=== PATIENT | male | born 1970 | race Caucasian/White ===

== ENCOUNTER 2023-03-31 16:13 | Outpatient (OUT) | payer OTHER, SELFPAY ==
[2023-03-31 16:35] LABS: Erythrocyte Sedimentation Rate 25 mm/hr (<=20)
[2023-03-31 16:47] LABS: Uric Acid 6.9 mg/dL (3.5-7.2)
[2023-03-31 16:48] LABS: C Reactive Protein <0.50 mg/dL (<=0.50)
== END 2023-03-31 16:14 | disposition home or self-care (01) ==
LOC: LAB 16:17
PROVIDERS: PCP Family Medicine; Visit Provider Family Medicine
DX: M76.60 Achilles tendinitis, unspecified leg (principal)
CPT/HCPCS: 36415; 84550; 85652; 86140

== ENCOUNTER 2024-03-29 14:47 | Outpatient (OUT) | payer OTHER, SELFPAY ==
--- NOTE | 2024-03-29 14:49 | US_ITS ---
[facility] [id number] Patient Name: CARIDAD BUTT MRN: [id number] date: 1970 Sex: M Assigned Patient Location: [place] Current Patient Location: Accession/Order Number: [id number] Exam Date: 03/29/2024 14:50 Report Date: 04/02/2024 08:16 At the request of: MENDEL PENA Procedure: US scrotum doppler EXAMINATION: US scrotum doppler HISTORY: Epididymitis ; right scrotal pain for 3 weeks COMPARISON: No relevant comparison available. TECHNIQUE: High-resolution sonographic imaging of the scrotum and contents was performed. FINDINGS: RIGHT: TESTICLE: Homogeneous echotexture. No visible mass. Color Doppler flow is present. Spectral Doppler demonstrates normal arterial waveform and flow, 5/2 cm/s (PSV/EDV), and normal venous wave flow averaging 2 cm/s. EPIDIDYMIS: Slightly heterogeneous. No increase in size or hypervascularity. OTHER: None. LEFT: TESTICLE: Homogeneous echotexture. No visible mass. Color Doppler flow is present. Spectral Doppler demonstrates arterial waveform and flow, 6/3 cm/s (PSV/EDV), and normal venous flow averaging 2 cm/s. EPIDIDYMIS: 3 mm cyst within head of epididymis. No increase in size or hypervascularity. OTHER: Varicocele and small hydrocele. US/US scrotum doppler IMPRESSION: 1. No acute or specific findings to account for patient's right scrotal pain. Electronically authenticated by: YAMILA RAZO Date: 04/02/2024 08:16
== END 2024-03-29 14:48 | disposition home or self-care (01) ==
LOC: US 14:47
PROVIDERS: PCP Family Medicine; Visit Provider Family Medicine
DX: N45.1 Epididymitis (principal)
CPT/HCPCS: 76870; 93976

== ENCOUNTER 2024-05-10 11:36 | Outpatient (OUT) | payer OTHER, SELFPAY ==
--- OUTSIDE RECORDS SUMMARY | 2024-05-10 11:40 | XMS_ITS | CCD ---
Author Organization [facility] Care Team Providers Care Electronics Processor Name Role Phone DR MENDEL ALBRECHT Primary Care Unavailable DR MENDEL ALBRECHT Admitting Unavailable JEAN, DR OGLESBY Attending Unavailable JEAN, DR OGLESBY Consulting Unavailable DR MENDEL ALBRECHT Admitting Unavailable JEAN, DR OGLESBY Attending Unavailable JEAN, DR OGLESBY Consulting Unavailable DR MENDEL ALBRECHT Primary Care Unavailable Mendel Albrecht Primary Care Physician [phone] EMILY XAVIER Attending Unavailable Mendel Albrecht Referring Unavailable Problems Active Problems Problem Classification Problem Date Documented Date Episodic/Chronic Abdominal pain (2 sources) Right lower quadrant pain; Translations: [Right lower quadrant pain] Onset: 04-23-2024 Episodic Diseases of mouth; excluding dental (1 source) Sialolithiasis 04-20-2024 Episodic Essential hypertension (1 source) Hypertensive disorder 04-20-2024 Chronic Inflammatory conditions of male genital organs (3 sources) Epididymitis; Translations: [Epididymitis] Onset: 04-23-2024 Episodic Osteoarthritis (1 source) Osteoarthritis of knee 04-20-2024 Chronic Other male genital disorders (1 source) Pain in testicle; Translations: [Right testicular pain] Onset: 04-23-2024 Episodic Other male genital disorders (2 sources) Pain of right testicle 04-20-2024 Episodic Other upper respiratory infections (1 source) Acute sinusitis, unspecified; Translations: [ACUTE SINUSITIS UNSPECIFIED] Onset: 04-09-2021 Episodic Spondylosis; intervertebral disc disorders; other back problems (1 source) Intervertebral disc disorder 04-20-2024 Chronic Unclassified (2 sources) CONTACT W/AND (SUSP) EXPOS COVID-19; Translations: [CONTACT W/AND (SUSP) EXPOS COVID-19] Onset: 04-09-2021 Viral infection (1 source) COVID-19; Translations: [COVID-19] Onset: 04-09-2021 Past or Other Problems Problem Classification Problem Date Documented Da te Episodic/Chronic Unclassified (1 source) CONTACT W/AND (SUSP) EXPOS COVID-19; Translations: [CONTACT W/AND (SUSP) EXPOS COVID-19] Onset: 04-03-2021 Results Test Name Value Interpretation Reference Range Facil ity Ambulatory Visit Summaryon 0 04-24-2024 Ambulatory Visit Summary Ambulatory Visit Summary CARIDAD BUTT :1970 Visit Date:04/23/2024 Ambulatory Visit Instructions Your Diagnosis Right testicular pain RLQ abdominal pain Chronic epididymitis Tests Performed CT Abdomen/Pelvis w/ + w/o Contrast -- Results Pending -- Please visit your patient portal for your results or contact your primary care physician. Your Care Team Attending Physician - EMILY XAVIER PA-C Primary Care Physician - Mendel Albrecht MD Referring Physician - Mendel Albrecht MD Procedures Performed Vasectomy (2007), Sinus. Discharge Vitals Temperature (Oral) 37 ???C Heart Rate (Apical) 72 Respiratory Rate 18 Blood Pressure 166/92 Height 72 in Height 183 cm Weight 259.704 lb Weight 117.8 kg BMI 35.18 What to do next You Need to Schedule the Following Appointments Follow Up with EMILY XAVIER PA-C, KANDI When: Comments: pending results of imaging/testing, will call with next steps Where: [address] [place] [address] Business (1) Allergies No Known Allergies Problems Ongoing - Any problem that you are currently receiving treatment for. Chronic epididymitis Epididymitis Hypertensive disorder Intervertebral disc disorder Osteoarthritis of knee Pain of right testicle Right testicular pain RLQ abdominal pain Sialolithiasis Patient Survey You may receive a survey via text or e-mail asking about your office visit. Please share your experience with us by completing your survey. We appreciate your feedback and thank you for choosing us for your care. Education Materials Abdominal Pain, Adult Pain in the abdomen (abdominal pain) can be caused by many things. In most cases, it gets better with no treatment or by being treated at home. But in some cases, it can be serious. Your health care provider will ask questions about your medical history and do a physical exam to try to figure out what is causing your pain. Follow these instructions at home: Medicines ??? Take yhgq-wsl-jhzcree and prescription medicines only as told by your provider. ??? Do not take medicines that help you poop (laxatives) unless told by your provider. General instructions ??? Watch your condition for any changes. ??? Drink enough fluid to keep your pee (urine) pale yellow. Contact a health care provider if: ??? Your pain changes, gets worse, or lasts longer than expected. ??? You have severe cramping or bloating in your abdomen, or you vomit. ??? Your pain gets worse with meals, after eating, or with certain foods. ??? You are constipated or have diarrhea for more than 2???3 days. ??? You are not hungry, or you lose weight without trying. ??? You have signs of dehydration. These may include: ? Dark pee, very little pee, or no pee. ? Cracked lips or dry mouth. ? Sleepiness or weakness. ??? You have pain when you pee (urinate) or poop. ??? Your abdominal pain wakes you up at night. ??? You have blood in your pee. ??? You have a fever. Get help right away if: ??? You cannot stop vomiting. ??? Your pain is only in one part of the abdomen. Pain on the right side could be caused by appendicitis. ??? You have bloody or black poop (stool), or poop that looks like tar. ??? You have trouble breathing. ??? You have chest pain. These symptoms may be an emergency. Get help right away. Call 911. ??? Do not wait to see if the symptoms will go away. ??? Do not drive yourself to the hospital. This information is not intended to replace advice given to you by your health care provider. Make sure you discuss any questions you have with your health care provider. Document Revised: 01/05/2023 Document Reviewed: 01/05/2023 [employer] Patient Education ??? 2023 [employer] Normal [facility] Covid-19 PCR (CVDTBH)on 03-06 SARS-CoV-2 (COVID-19) RNA PHILOMENA+probe Ql (Unsp spec) Detected Critically abnormal NOT DETECTED [facility] Comment on above: Result Comment: This test is not yet approved or cleared by the [place] FDA. When there are no FDA-approved or cleared tests available, and other criteria are met, FDA can make tests available under an emergency access mechanism called an Emergency Use Authorization (EUA). The EUA for this test is supported by the [employer] of Health and Human Service's (HHS's) declaration that circumstances exist to justify the emergency use of in vitro diagnostics for the detection and/or diagnosis of the virus that causes COVID-19. This EUA will remain in effect (meaning this test can be used) for the duration of the COVID-19 declaration justifying emergency of IVDs, unless it is terminated or revoked by FDA (after which the test may no longer be used). Performed By: #### C VDTBH #### [facility] [address] [place] [address] Dr. Gracy Robbins Covid-19 PCR (CVDTB)on EUA Statement SEE BELOW Normal [facility] Comment on above: Result Comment: This test is not yet approved or cleared by the [place] FDA. When there are no FDA-approved or cleared tests available, and other criteria are met, FDA can make tests available under an emergency access mechanism called an Emergency Use Authorization (EUA). The EUA for this test is supported by the [place] of Health and Human Service?s (HHS?s) declaration that circumstances exist to justify the emergency use of in vitro diagnostics for the detection and/or diagnosis of the virus that causes COVID-19. This EUA will remain in effect (meaning this test can be used) for the duration of the COVID-19 declaration justifying emergency of IVDs, unless it is terminated or revoked by FDA (after which the test may no longer be used). When diagnostic testing is negative, the possibility of a false negative should be considered in the context of a patients recent exposures and the presence of clinical signs and symptoms consistent with SARS-CoV-2. Performed By: #### C VDTBH #### [facility] [address] [place] [address] Hanna Cohen SARS-CoV-2 (COVID-19) RNA PHILOMENA+probe Ql (Unsp spec) Detected Abnormal NOT DETECTED [facility] Comment on above: Result Comment: This test is not yet approved or cleared by the [place] FDA. When there are no FDA-approved or cleared tests available, and other criteria are met, FDA can make tests available under an emergency access mechanism called an Emergency Use Authorization (EUA). The EUA for this test is supported by the [place] of Health and Human Service's (HHS's) declaration that circumstances exist to justify the emergency use of in vitro diagnostics for the detection and/or diagnosis of the virus that causes COVID-19. This EUA will remain in effect (meaning this test can be used) for the duration of the COVID-19 declaration justifying emergency of IVDs, unless it is terminated or revoked by FDA (after which the test may no longer be used). Performed By: #### [facility] #### [facility] [address] [address] Hanna Cohen Vital Signs Date Time Vital Sign Value Performing Clinician Faci lity 04-23-2024 11:10-0500 Diastolic blood pressure 92 mm[Hg] EMILY DUC [facility] 04-23-2024 11:10-0500 Heart rate 72 /min EMILY DUC [facility] 04-23-2024 11:10-0500 Mean blood pressure 117 mm[Hg] EMILY DUC [facility] 04-23-2024 11:10-0500 Systolic blood pressure 166 mm[Hg] EMILY DUC [facility] 04-23-2024 10:55-0500 Blood Pressure Location [facility] 04-23-2024 10:55-0500 Body temperature 98.6 [degF] EMILY XAVIER [facility] 04-23-2024 10:55-0500 Diastolic blood pressure 94 mm[Hg] EMILY DUC [facility] 04-23-2024 10:55-0500 Heart rate 55 /min EMILY DUC [facility] 04-23-2024 10:55-0500 Respiratory rate 18 /min EMILY DUC [facility] 04-23-2024 10:55-0500 Systolic blood pressure 161 mm[Hg] EMILY DUC [facility] Encounters Encounter Date Encounter Type Care Provider Facility Start: 04-23-2024 End: 04-23-2024 ambulatory EMILY XAVIER [facility] Start: 04-23-2024 End: 04-23-2024 Patient encounter procedure EMILY XAVIER [facility] Start: 04-12-2024 ambulatory EMILY XAVIER Facility :[facility] [place] Start: 04-11-2024 ambulatory EMILY XAVIER Facility :[facility] Start: 04-03-2021 End: 04-03-[address] MENDEL ALBRECHT Facility: Start: 04-11-2020 End: 04-11-[address] MENDEL ALBRECHT Facility:[facility] Procedures Date Procedure Procedure Detail Performing Clinician Start: 04-04-2007 Vasectomy EMILY MUJICA Sinus (morphologic abnormality) EMILY XAVIER Immunizations Immunization Date Immunization Notes Care Provider Yang valiente 01-02-2021 influenza, unspecifi ed formulation EMILY XAVIER [facility] 07-24-2020 SARS-CoV-2 (COVID-19 ) mRNA BNT-162b2 vax EMILY XAVIER [facility] 07-03-2020 SARS-CoV-2 (COVID-19 ) mRNA BNT-162b2 vax EMILY XAVIER [facility] 01-02-2020 influenza virus vaccine, unspecified formulation EMILY XAVIER [facility] Payers Date Payer Category Payer Unknown [id number] 1970 Unknown [id number] 1970 Unknown [id number] 1970 Unknown [id number] 1960 Unknown [id number] Social History Date Type Detail Facility Start: 04-23-2024 Tobacco smoking status Ex-smoker (fi nding) [facility] Tobacco smoking status Never [facility] Sex Assigned At Male [facility] Functional Status Date Assessment Result Facility 04-23-2024 Functional Status N/A [facility] Hospital Discharge instructions 04-23-2024 Note Date & Type Note Facility 04-23-2024 Hospital Discharg e instructions Patient Education 04/23/2024 15:52:52 Abdominal Pain, Adult Abdominal Pain, Adult Pain in the abdomen (abdominal pain) can be caused by many things. In most cases, it gets better with no treatment or by being treated at home. But in some cases, it can be serious. Your health care provider will ask questions about your medical history and do a physical exam to try to figure out what is causing your pain. Follow these instructions at home: Medicines Take kgfn-xdw-ckhdmei and prescription medicines only as told by your provider. Do not take medicines that help you poop (laxatives) unless told by your provider. General instructions Watch your condition for any changes. Drink enough fluid to keep your pee (urine) pale yellow. Contact a health care provider if: Your pain changes, gets worse, or lasts longer than expected. You have severe cramping or bloating in your abdomen, or you vomit. Your pain gets worse with meals, after eating, or with certain foods. You are constipated or have diarrhea for more than 2 3 days. You are not hungry, or you lose weight without trying. You have signs of dehydration. These may include: ?Dark pee, very little pee, or no pee. ?Cracked lips or dry mouth. ?Sleepiness or weakness. You have pain when you pee (urinate) or poop. Your abdominal pain wakes you up at night. You have blood in your pee. You have a fever. Get help right away if: You cannot stop vomiting. Your pain is only in one part of the abdomen. Pain on the right side could be caused by appendicitis. You have bloody or black poop (stool), or poop that looks like tar. You have trouble breathing. You have chest pain. These symptoms may be an emergency. Get help right away. Call 911. Do not wait to see if the symptoms will go away. Do not drive yourself to the hospital. This information is not intended to replace advice given to you by your health care provider. Make sure you discuss any questions you have with your health care provider. Document Revised: 01/05/2023 Document Reviewed: 01/05/2023 [employer] Patient Education 2023 [employer]. Follow Up Care 04/12/2024 14:35:41 With:EMILY XAVIER PA-C, URL Address: [address] [place] [address] Business (1) When: Unknown Comments:pending results of imaging/testing, will call with next steps [facility] Clinical Note 04-23-2024 Note Date & Type Note Facility 04-23-2024 Note Urology Office/Clini c Note Chief Complaint referral HPI Staff 53yr old male pt referred by Grover Albrecht for right testicle pain. Pt has history of epididymitis on and off throughout the past 10 years or so. Typically presents only with R testicle pain/tenderness. Sometimes can alleviate just w scrotal support, ice, and NSAIDs. Sometimes improves w course of Abx from PCP. Most recent episode started early Mar. New sx includes RLQ/inguinal pain and R low back/flank pain. These are not typical for him. Also having the typical R testicle pain. PCP treated w Cipro x 10d on 03/08/24 which pt states didn't really change anything. Treated w Cefdinir x 10d on 03/19 which pt states helped but he's not back to 100%. Scrotal US 03/29/24 unimpressive - slightly heterogeneous epididymis on R, small varicocele and hydrocele on L. Pt denies LUTS, IPSS 1 QOL 0. Denies prostatitis sx - no perineal pain, rectal pain/burning, pain w ejaculation or urination. Same sexual partner since high school, no concern for STDs. No injury to area. Does a lot of heavy lifting at work but no hx hernias. No hx kidney stones. Dysuria: denies Incomplete bladder emptying: denies Hematuria: denies Frequency: denies Urgency: denies Nocturia: denies Stream: strong stream Leaking: denies Post void dripping: denies Wearing pads/ Depends: denies Urge incontinence: denies Stress incontinence: denies Incontinence without Sensory Awareness: denies Sexual complaints: denies Review of Systems PHQ Score Initial Depression Screen Score: 0 SCORE no fever, chills, malaise, myalgia. no rash/lesions. no chest pain, palpitations, or SOB. no nausea, vomiting. Physical Exam Vitals & Measurements T: 37 ???C(Oral) HR: 72(Apical) RR: 18 BP: 166/92 HT: 72 in HT: 183 cm WT: 117.8 kg WT: 259.704 lb BMI: 35.18 General: nontoxic, NAD Mouth: moist mucosa Lungs: normal respiratory effort Cardio: regular rate, good distal perfusion Abdomen: nondistended Neurologic: Grossly normal Skin: No rashes or suspicious lesions : Deferred as scrotal US noncontributory and pt denies any swelling/redness/nodules. Assessment/Plan 1. Right testicular pain (N50.811: Right testicular pain) Since pain is different this time (includes #2 and R flank pain) will obtain CT scan to r/o stones, ureteral obstruction, as well as R inguinal hernia. If negative, pt will continue supportive measures like ice, elevation, scrotal support, and NSAIDs. Ordered: E&M of New Patient Moderate 45-59 Min 98166 2. RLQ abdominal pain (R10.31: Right lower quadrant pain) See #1. Ordered: E&M of New Patient Moderate 45-59 Min 56446 3. Chronic epididymitis (N45.1: Epididymitis) On & off x 10 yrs. If continues, could consider testing for GC/Chlamydia (despite no STD concerns) as well as uncommon bugs like m.genitalium and ureaplasma. Pt has considered epididymectomy if continues but doesn't think it's happening frequently enough/bothersome enough to warrant this at this time. Ordered: E&M of New Patient Moderate 45-59 Min 19735 Orders: Body Mass Index (BMI) documented 3008F CT Abdomen/Pelvis w/ + w/o Contrast Current tobacco non-user 1036F Depression Screening Negative 3352F Influenza immunization status assessed 1030F Medication list documented in medical record 1159F Most recent diastolic blood pressure >=90 mm Hg 3080F Most recent systolic blood pressure >= 140 mm Hg 3077F Urnls Dip Stick Auto w/o Microscopy POC 21712 Follow-up With When Contact Information EMILY XAVIER PA-C, URL [address] [place] [address] Business (1) Additional Instructions: pending results of imaging/testing, will call with next steps Patient Education Abdominal Pain, Adult Problem List/Past Medical History Ongoing Chronic epididymitis Epididymitis Hypertensive disorder Intervertebral disc disorder Osteoarthritis of knee Pain of right testicle Right testicular pain RLQ abdominal pain Sialolithiasis Historical No qualifying data Procedure/Surgical History Vasectomy (2007), Sinus. Medications No active medications Allergies No Known Allergies Social History Substance Abuse Never., 04/23/2024 Tobacco Former smoker, quit more than 30 days ago Tobacco Use:. Never Smokeless Tobacco Use:., 04/23/2024 Family History Diabetes mellitus: Mother and Father. Immunizations Vaccine Date Status influenza, unspecified formulation 01/02/2021 Recorded SARS-CoV-2 (COVID-19) mRNA BNT-162b2 vax 07/24/2020 Recorded SARS-CoV-2 (COVID-19) mRNA BNT-162b2 vax 07/03/2020 Recorded influenza virus vaccine, inactivated 01/02/2020 Recorded Lab Results Ambulatory Point of Care Results Bilirubin Urine Dipstick: Negative (04/23/24 11:01:00) Blood Urine Dipstick: Negative (04/23/24 11:01:00) Glucose Urine Dipstick: Negative (04/23/24 11:01:00) Ketones Urine Dipstick: Negative (04/23/24 11:01:00) Leukocytes Urine Dipstick: Negati (more content not included)... [facility] Comment on above: Result Comment: Elec tronically Signed By: EMILY XAVIER PA-C.michael\Date and Time Signed: 04/23/24 15:54 EST Clinical Note 04-23-2024 Note Date & Type Note Facility 04-23-2024 Note Patient Education Gastroenterology Abdominal Pain, Adult Pain in the abdomen (abdominal pain) can be caused by many things. In most cases, it gets better with no treatment or by being treated at home. But in some cases, it can be serious. Your health care provider will ask questions about your medical history and do a physical exam to try to figure out what is causing your pain. Follow these instructions at home: Medicines ??? Take pkux-ktw-btcputl and prescription medicines only as told by your provider. ??? Do not take medicines that help you poop (laxatives) unless told by your provider. General instructions ??? Watch your condition for any changes. ??? Drink enough fluid to keep your pee (urine) pale yellow. Contact a health care provider if: ??? Your pain changes, gets worse, or lasts longer than expected. ??? You have severe cramping or bloating in your abdomen, or you vomit. ??? Your pain gets worse with meals, after eating, or with certain foods. ??? You are constipated or have diarrhea for more than 2?3 days. ??? You are not hungry, or you lose weight without trying. ??? You have signs of dehydration. These may include: ? Dark pee, very little pee, or no pee. ? Cracked lips or dry mouth. ? Sleepiness or weakness. ??? You have pain when you pee (urinate) or poop. ??? Your abdominal pain wakes you up at night. ??? You have blood in your pee. ??? You have a fever. Get help right away if: ??? You cannot stop vomiting. ??? Your pain is only in one part of the abdomen. Pain on the right side could be caused by appendicitis. ??? You have bloody or black poop (stool), or poop that looks like tar. ??? You have trouble breathing. ??? You have chest pain. These symptoms may be an emergency. Get help right away. Call 911. ??? Do not wait to see if the symptoms will go away. ??? Do not drive yourself to the hospital. This information is not intended to replace advice given to you by your health care provider. Make sure you discuss any questions you have with your health care provider. Document Revised: 01/05/2023 Document Reviewed: 01/05/2023 [employer] Patient Education ? 2023 [employer]. [facility] Evaluation + Plan note Note Date & Type Note Facility Evaluation + Plan note No data available for this section [facility] Progress note Note Date & Type Note Facility Progress note No data available for this section [facility] Summary Purpose Family History No Family History Records Found No data available for this section No Family History Records Found Advance Directives No Advanced Directives Records FoundNo Advanced Directives Records Found Additional Source Comments (unrecognized sect ion and content) No Status Records FoundNo Status Records Found INFORMATION SOURCE (unrecogn ized section and content) DATE CREATED AUTHOR 04/10/2021 [facility] DATE CREATED AUTHOR AUTHOR'S ORGANIZ ATION 04/25/2024 [facility] Patient Care team informheavenly n (unrecognized section and content) Personnel Name: Mendel Albrecht MD Address: Address: [address] [place] [address] FOR RECORDS PERTAINING TO PATIENTS WHO ARE OR HAVE BEEN ENROLLED IN A CHEMICAL DEPENDENCY/SUBSTANCEABUSE PROGRAM, SOME INFORMATION MAY BE OMITTED. This clinical summary was aggregated from multiple sources. Caution should be exercised in using it in the provision of clinical care. This summary normalizes information from multiple sources, and as a consequence, information in this document may materially change the coding, format and clinical context of patient data. In addition, data may be omitted in some cases. CLINICAL DECISIONS SHOULD BE BASED ON THE PRIMARY CLINICAL RECORDS. [employer] provides no warranty or guarantee of the accuracy or completeness of information in this document.
--- NOTE | 2024-05-10 11:43 | CT_ITS ---
The [address] [address] Patient Name: CARIDAD BUTT MRN: [id number] date: 1970 Sex: M Assigned Patient Location: CT Current Patient Location: Accession/Order Number: [id number] Exam Date: 05/10/2024 12:35 Report Date: 05/12/2024 09:11 At the request of: EMILY XAVIER Procedure: CT abdomen pelvis wo/w con EXAM: CT scan of the abdomen and pelvis without and with IV contrast using 100 mL of IV iodinated contrast. Oral contrast. Dose reduction technique used: Automated exposure control and/or adjustment of the mA and/or kV according to patient size and/or use of iterative reconstruction technique. REASON FOR EXAM: n50.819 Testicular pain COMPARISON: None FINDINGS: Normal appendix. No free intraperitoneal air. No free fluid in the abdomen or pelvis. No dilated or thickened loops of small bowel or colon. No renal, ureteral or bladder calculi. No hydronephrosis. Liver, pancreas, spleen, bilateral kidneys, and bilateral adrenal glands are otherwise unremarkable. No lymphadenopathy in the abdomen or pelvis. Remainder unremarkable. CT/CT abdomen pelvis wo/w con IMPRESSION: No acute abnormalities in the abdomen or pelvis. Electronically authenticated by: CHRISTIN DEL RIO Date: 05/12/2024 09:11
== END 2024-05-10 11:37 | disposition home or self-care (01) ==
LOC: CT 11:37
PROVIDERS: PCP Family Medicine; Visit Provider Physician Assistant
DX: N50.819 Testicular pain, unspecified (principal)
CPT/HCPCS: 74178; Q9967

== ENCOUNTER 2024-10-10 15:24 | Outpatient (OUT) | payer OTHER, SELFPAY ==
--- NOTE | 2024-10-10 15:32 | XR_ITS ---
[address] [address] Patient Name: CARIDAD BUTT MRN: [id number] date: 1970 Sex: M Assigned Patient Location: LAB Current Patient Location: LAB Accession/Order Number: [id number] Exam Date: 10/10/2024 16:27 Report Date: 10/10/2024 16:28 At the request of: MENDEL PENA MD Procedure: XR abdomen 1V Single view of abdomen COMPARISON: CT abdomen and pelvis 05/10/2024 Negative exam HISTORY: Acute right flank pain. THORAX: Lung bases unremarkable. FREE AIR: Supine position limits assessment BOWEL: No gaseous intestinal distention. STOOL: Mild burden of stool throughout the colon. RENAL STONES: No significant stones present. VASCULAR CALCIFICATIONS: Unremarkable SOFT TISSUE: Unremarkable BONES: Lumbar degeneration POSTSURGICAL CHANGES: None XR/XR abdomen 1V IMPRESSION: No visible stones. Mild constipation Impression dictated by: Ray Willis M.D. 10/10/2024 4:28 PM Dictation Location: [place] [address] Electronically authenticated by: [id number] Y Date: 10/10/2024 16:28
[2024-10-10 15:37] LABS: Glucose Urine UA NEGATIVE (NEGATIVE)
[2024-10-10 15:48] LABS: Crystals Seen? None Seen #/HPF (None Seen)
[2024-10-10 15:49] LABS: Cast Seen? NONE SEEN #/LPF (NONE SEEN); Urine Culture Indicated ALREADY ORDERED
== END 2024-10-10 15:25 | disposition home or self-care (01) ==
LOC: LAB 15:26
PROVIDERS: PCP Family Medicine; Visit Provider Family Medicine
DX: R10.9 Unspecified abdominal pain (principal); K59.00 Constipation, unspecified
CPT/HCPCS: 74018; 81001; 87086

== ENCOUNTER 2024-10-15 14:26 | Outpatient (OUT) | payer OTHER, SELFPAY ==
--- NOTE | 2024-10-15 14:38 | CT_ITS ---
The [address] [address] Patient Name: CARIDAD BUTT MRN: [id number] date: 1970 Sex: M Assigned Patient Location: CT Current Patient Location: Accession/Order Number: [id number] Exam Date: 10/16/2024 06:51 Report Date: 10/16/2024 06:57 At the request of: MENDEL PENA MD Procedure: CT abdomen pelvis wo con CT ABDOMEN AND PELVIS WITHOUT CONTRAST COMPARISON: 05/12/2024 CLINICAL DATA: Right flank pain. Spiral images were obtained through the abdomen and pelvis without contrast. This CT exam was performed using one or more following dose reduction techniques: Automated exposure control, adjustment of the mA and/or kV according to patient size, or use of iterative reconstruction technique. Limited cuts through the lung bases show no contributory findings. Evaluation of the intra-abdominal organs is slightly limited by the absence of contrast. No calcified gallstones are identified. The liver, spleen, pancreas and adrenal glands show no acute findings. No renal calculi or hydronephrosis are noted. There is minor bilateral perinephric fibrofatty stranding. No ureteral dilatation or stones are seen. There is minor atherosclerotic plaque at the aorta and iliac arteries. No enlarged lymph nodes or ascites are identified. The small bowel loops are normal caliber. There is mild right-sided colonic stool. The left colon is mostly decompressed. There are mild degenerative changes at the spine. Images through the pelvis show no appendiceal inflammation. There is no dilated small bowel. There is a small amount of rectosigmoid stool. No diverticular disease is noted. The prostate is top normal in size and contains calcification. The urinary bladder wall is borderline thickened for the degree of distention. There are no intraluminal abnormalities. No ascites is seen. There is mild degenerative change at the SI joints, greater on the left. CT/CT abdomen pelvis wo con IMPRESSION: NO OBSTRUCTIVE UROPATHY OR STONE DISEASE. BORDERLINE URINARY BLADDER WALL THICKENING. CORRELATION IS RECOMMENDED TO ANY POSSIBILITY OF CYSTITIS. NO OTHER ACUTE FINDINGS. Impression dictated by: Vicki Hilario M.D. 10/16/2024 6:57 AM Dictation Location: [place] [address] Electronically authenticated by: [id number] Y Date: 10/16/2024 06:57
== END 2024-10-15 14:27 | disposition home or self-care (01) ==
LOC: CT 14:26
PROVIDERS: PCP Family Medicine; Visit Provider Family Medicine
DX: R10.9 Unspecified abdominal pain (principal)
CPT/HCPCS: 74176